=== PATIENT | female | born 1985 | race Two or more races ===

== ENCOUNTER 2024-06-16 07:13 | Day surgery (SDC) | payer BC, SELFPAY ==
[2024-06-16] VITALS (8 sets, daily range): BP systolic 112–132; BP diastolic 62–91; BMI 40.7
[2024-06-16] MEDS: TYLENOL 1000 MG PO (08:09)
[2024-06-16] MEDS: CELEBREX 200 MG PO (08:09)
[2024-06-16] MEDS: NORMOSOL-R/PLASMALYTE-A 1000 IV (08:09)
[2024-06-16] MEDS: ROXICODONE 5 MG PO (11:41)
== END 2024-06-16 12:50 | disposition home or self-care (01) ==
LOC: SDS 07:13
PROVIDERS: ATTENDING PHYSICIAN Specialist
DX: S83.241A Other tear of medial meniscus, current injury, right knee, initial encounter (principal); S83.281A Other tear of lateral meniscus, current injury, right knee, initial encounter; X58.XXXA Exposure to other specified factors, initial encounter
CPT/HCPCS: 29880; 87070